=== PATIENT | male | born 1975 | race Two or more races ===

== ENCOUNTER 2021-06-03 15:43 | Inpatient (IN) | payer MEDICAID ==
[~2021-06-03] VITALS: Ht 185.4 cm; Wt 121.7 kg
[2021-06-03] MEDS ORDERED: SODIUM CHLORIDE 0.9% 1,000 ML IV ONE ×2 (16:15)
[2021-06-03] MEDS ORDERED: CLINDAMYCIN 600MG IV 50 ML IV ONE (16:15)
[2021-06-03] MEDS ORDERED: cefTRIAXone 1GM/50ML D5W 50 ML IV ONE (16:15)
[2021-06-03 16:54] LABS: Hemoglobin 11.4 g/dL (13.5-17.5); Mean Corpuscular Hgb Conc. 32.8 g/dL (32.0-36.0); White Blood Cell 6.4 10^3/uL (4.4-10.8)
[2021-06-03 16:56] LABS: Hematocrit 34.7 % (41.0-53.0); Mean Corpuscular Hemoglobin 26.6 pg (28.0-32.0); Mean Corpuscular Volume 81.3 fL (80.0-100.0); Red Blood Cells 4.26 10^6/uL (4.5-5.90); Red Cell Distribution Width 14.8 % (11.8-14.3)
[2021-06-03 17:04] LABS: Band Neutrophils % (manual) 0; Basophils % (manual) 0 (0.0-2.0); Blast Cells 0; Myelocytes % 0; Promyelocytes % 0; Reactive Lymphocytes 0
[2021-06-03 17:08] LABS: INR 1.25 (0.9-1.15); Partial Thromboplastin Time 37.3 sec (23.6-33.0)
[2021-06-03 17:15] LABS: Alanine Aminotransferase 18 U/L (16-61); Albumin 3.3 g/dL (3.4-5.0); Anion Gap 9 (5-15); Aspartate Aminotransferase 9 U/L (15-37); BUN/Creatinine Ratio 7.7; Blood Urea Nitrogen 8 mg/dL (7-18); Calcium 9.1 mg/dL (8.5-10.1); Carbon Dioxide 24 mmol/L (21-32); Chloride 106 mmol/L (98-107); GFR African American 100 mL/min; GFR Non-African American 82 mL/min; Glucose 98 mg/dL (74-106); Potassium 3.4 mmol/L (3.5-5.1); Sodium 139 mmol/L (136-145)
[2021-06-03 17:19] LABS: Alkaline Phosphatase 119 U/L (45-117); Bilirubin, Total 0.4 mg/dL (0.2-1.0); Total Protein 8.2 g/dL (6.4-8.2)
[2021-06-03 17:39] LABS: Eosinophils % (manual) 2 (0-7); Lymphocytes % (manual) 43 (10.0-50.0); Metamyelocytes % 1; Monocytes % (manual) 2 (0-12)
[2021-06-03] MEDS ORDERED: GABAPENTIN 300 MG CAP PO ONE (18:30)
[2021-06-03] MEDS ORDERED: VANCOMYCIN 1GM/250ML 250 ML IV ONE (19:30)
[2021-06-03] MEDS: PIPERACILLIN-TAZO 4.5GM 100 ML IV SCH (23:10)
[2021-06-03] MEDS ORDERED: POTASSIUM CHL 20 Meq TABLET PO ONE (23:30)
[2021-06-03] MEDS ORDERED: DOCUSATE SOD 100 MG CAP PO PRN (23:30)
[2021-06-03] MEDS ORDERED: NITROGLYCERIN 0.4 MG SL TAB SL PRN (23:30)
[2021-06-03] MEDS ORDERED: VANCOMYCIN PER PHARMACY 0 MG IV SCH (23:30)
[2021-06-03] MEDS ORDERED: MORPHINE SULFATE INJECTION 2 MG/ML SYRG IV PRN (23:30)
[2021-06-04] VITALS (7 sets, daily range): BP systolic 147–168; BP diastolic 88–98
[2021-06-04 01:10] LABS: Urine Bacteria FEW /hpf (None Seen); Urine Blood Negative /uL (Negative); Urine Mucus FEW (None Seen); Urine Specific Gravity 1.019 (1.001-1.035); Urine WBC 4 /hpf (0 - 3)
[2021-06-04] MEDS: MORPHINE SULFATE 4 MG/ML SYR/VIAL IV PRN ×3 (01:30→17:45)
[2021-06-04] MEDS ORDERED: VANCOMYCIN 1GM/250ML 250 ML IV ONE (04:00)
[2021-06-04] MEDS ORDERED: HYDR-5052 PO (04:26)
[2021-06-04] MEDS ORDERED: LISI-716 PO (04:26)
[2021-06-04] MEDS ORDERED: AMLO-489 PO (04:26)
[2021-06-04] MEDS ORDERED: IBUP600T28 PO (04:26)
[2021-06-04] MEDS ORDERED: GABA-339 PO (04:26)
[2021-06-04] MEDS ORDERED: CHOL20007 PO (04:26)
[2021-06-04] MEDS ORDERED: RIV15T PO (04:26)
[2021-06-04 05:43] LABS: Basophils # (auto) 0 10 ^3/uL (0-0.2); Basophils % (auto) 0.5 % (0.0-2.0); Eosinophils # (auto) 0.2 10 ^3/uL (0-0.8); Hemoglobin 9.4 g/dL (13.5-17.5); Lymphocytes # (auto) 1.9 10 ^3/uL (0.4-5.4); Monocytes # (auto) 0.4 10 ^3/uL (0-1.3); Nucleated Red Blood Cells % 0.1 %
[2021-06-04 05:50] LABS: Eosinophils % (auto) 3.4 % (0.0-7.0); Hematocrit 28.7 % (41.0-53.0); Lymphocytes % (auto) 36.7 % (10.0-50.0); Mean Corpuscular Hemoglobin 26.6 pg (28.0-32.0); Mean Corpuscular Hgb Conc. 32.6 g/dL (32.0-36.0); Mean Corpuscular Volume 81.6 fL (80.0-100.0); Monocytes % (auto) 8.7 % (0.0-12.0); Neutrophils # (auto) 2.6 10 ^3/uL (1.6-8.6); Neutrophils % (auto) 50.7 % (37.0-80.0); Red Blood Cells 3.52 10^6/uL (4.5-5.90); Red Cell Distribution Width 15.1 % (11.8-14.3); White Blood Cell 5.1 10^3/uL (4.4-10.8)
[2021-06-04] MEDS: PIPERACILLIN-TAZO 4.5GM 100 ML IV SCH ×3 (06:00→15:29)
[2021-06-04 06:17] LABS: Albumin 2.5 g/dL (3.4-5.0); Calcium 8.7 mg/dL (8.5-10.1); Potassium 3.2 mmol/L (3.5-5.1)
[2021-06-04 06:19] LABS: BUN/Creatinine Ratio 6.3
[2021-06-04 06:29] LABS: Bilirubin, Total 0.3 mg/dL (0.2-1.0); Total Protein 6.6 g/dL (6.4-8.2)
[2021-06-04] MEDS: SODIUM CHLOR 0.9% PF (SALINE LOCK) 10ML VIAL/SYR IV SCH ×3 (07:12→22:07)
[2021-06-04] MEDS: VANCOMYCIN 1GM/250ML 250 ML IV SCH ×2 (10:03→18:38)
[2021-06-04] MEDS: FAMOTIDINE (10MG/ML) 2ML VL IV SCH ×2 (10:04→22:07)
[2021-06-04] MEDS: ENOXAPARIN SOD 40 MG/0.4 ML SYRINGE SC SCH (10:05)
[2021-06-04] MEDS: MULTIPLE VITAMIN TAB PO SCH (10:06)
[2021-06-04] MEDS: ASCORBIC ACID 500 MG TAB PO SCH ×2 (10:06→22:07)
[2021-06-04] MEDS: amLODIPine BESYLATE 5 MG TAB PO SCH (10:06)
[2021-06-04] MEDS: ZINC SULFATE 220mg CAP or TAB PO SCH (10:06)
[2021-06-04] MEDS: HYDROcodone-ACET 5/325MG TAB PO PRN (10:17)
[2021-06-04] MEDS: hydrALAZINE HCL 20 MG/ML VL IV PRN ×2 (11:33→17:44)
[2021-06-04] MEDS: AZITHROMYCIN 500MG/ 250ML 250 ML IV SCH (13:29)
[2021-06-04] MEDS ORDERED: POTASSIUM CHL 20 Meq TABLET PO ONE (14:45)
[2021-06-04 15:19] LABS: INR 1.11 (0.9-1.15); Partial Thromboplastin Time 33.8 sec (23.6-33.0)
[2021-06-04] MEDS ORDERED: GABAPENTIN 300 MG CAP PO ONE (21:00)
[2021-06-05] VITALS (12 sets, daily range): BP systolic 98–161; BP diastolic 62–102
[2021-06-05] MEDS: VANCOMYCIN 1GM/250ML 250 ML IV SCH ×3 (03:00→22:34)
[2021-06-05] MEDS: SODIUM CHLOR 0.9% PF (SALINE LOCK) 10ML VIAL/SYR IV SCH ×3 (06:00→22:35)
[2021-06-05] MEDS: PIPERACILLIN-TAZO 4.5GM 100 ML IV SCH ×3 (06:00→23:34)
[2021-06-05] MEDS ORDERED: TETRACAINE 1% INJ 2 ML VIAL IJ ONE (07:09)
[2021-06-05] MEDS ORDERED: MIDAZOLAM HCL 2MG/2ML 2ml VIAL (1mg/ml) ONE ×2 (07:15→07:51)
[2021-06-05] MEDS ORDERED: fentaNYL CITRATE 100 MCG/2 ML VL ONE (07:15)
[2021-06-05] MEDS ORDERED: KETAMINE HCL 10 ML ONE (07:15)
[2021-06-05] MEDS ORDERED: MORPHINE SULF PF 2 MG/2 ML SYRG ONE (07:15)
[2021-06-05] MEDS ORDERED: PROPOFOL 10 MG/ML 20 ML IV ONE ×2 (07:16→09:19)
[2021-06-05] MEDS ORDERED: PHENYLEPHRINE HCL 10 MG/ML VL ONE (07:16)
[2021-06-05] MEDS ORDERED: ePHEDrine SULFATE 50 MG/ML AMP ONE (07:16)
[2021-06-05] MEDS ORDERED: GLYCOPYRROLATE 0.2 MG/ML 1ML VIAL ONE (07:16)
[2021-06-05] MEDS ORDERED: ONDANSETRON HCL 4 MG/2 ML VIAL ONE (07:16)
[2021-06-05] MEDS ORDERED: POVIDONE IODINE 10 % TOPICAL OINT 30GM TOP ONE (08:28)
[2021-06-05] MEDS ORDERED: ONDANSETRON HCL 4 MG/2 ML VIAL IV PRN (09:45)
[2021-06-05] MEDS ORDERED: NALOXONE HCL 0.4 MG/ML VIAL IV PRN (09:45)
[2021-06-05] MEDS ORDERED: DexAMETHasone SOD PHOS 10MG/1ML VIAL INJ IV PRN (09:45)
[2021-06-05] MEDS ORDERED: diphenhdrAMINE HCL 50 MG/1 ML VL IV PRN (09:45)
[2021-06-05] MEDS: FAMOTIDINE (10MG/ML) 2ML VL IV SCH ×2 (10:00→22:36)
[2021-06-05] MEDS: ENOXAPARIN SOD 40 MG/0.4 ML SYRINGE SC SCH (10:00)
[2021-06-05] MEDS: MULTIPLE VITAMIN TAB PO SCH (10:00)
[2021-06-05] MEDS: ASCORBIC ACID 500 MG TAB PO SCH ×2 (10:00→22:35)
[2021-06-05] MEDS: ZINC SULFATE 220mg CAP or TAB PO SCH (10:00)
[2021-06-05] MEDS: AZITHROMYCIN 500MG/ 250ML 250 ML IV SCH (10:00)
[2021-06-05] MEDS: amLODIPine BESYLATE 5 MG TAB PO SCH (12:04)
[2021-06-05] MEDS: MORPHINE SULFATE 4 MG/ML SYR/VIAL IV PRN ×3 (12:06→22:36)
[2021-06-05] MEDS: ONDANSETRON HCL 4 MG/2 ML VIAL IV PRN ×2 (13:14→22:36)
[2021-06-05] MEDS: HYDROcodone-ACET 5/325MG TAB PO PRN (19:26)
[2021-06-05] MEDS: ACETAMINOPHEN 325 MG TAB PO PRN (22:36)
[2021-06-06] VITALS (11 sets, daily range): BP systolic 134–158; BP diastolic 86–102
[2021-06-06] MEDS: hydrALAZINE HCL 20 MG/ML VL IV PRN (00:40)
[2021-06-06] MEDS: SODIUM CHLOR 0.9% PF (SALINE LOCK) 10ML VIAL/SYR IV SCH ×3 (06:36→22:13)
[2021-06-06] MEDS: VANCOMYCIN 1GM/250ML 250 ML IV SCH (06:36)
[2021-06-06] MEDS: ONDANSETRON HCL 4 MG/2 ML VIAL IV PRN (06:37)
[2021-06-06] MEDS: ACETAMINOPHEN 325 MG TAB PO PRN (06:37)
[2021-06-06] MEDS: PIPERACILLIN-TAZO 4.5GM 100 ML IV SCH (07:32)
[2021-06-06] MEDS: HYDROcodone-ACET 5/325MG TAB PO PRN (10:10)
[2021-06-06] MEDS: ASCORBIC ACID 500 MG TAB PO SCH ×2 (10:10→22:12)
[2021-06-06] MEDS: MULTIPLE VITAMIN TAB PO SCH (10:11)
[2021-06-06] MEDS: FAMOTIDINE (10MG/ML) 2ML VL IV SCH ×2 (10:11→22:13)
[2021-06-06] MEDS: amLODIPine BESYLATE 5 MG TAB PO SCH (10:11)
[2021-06-06] MEDS: ENOXAPARIN SOD 40 MG/0.4 ML SYRINGE SC SCH (10:11)
[2021-06-06] MEDS: ZINC SULFATE 220mg CAP or TAB PO SCH (10:11)
[2021-06-06] MEDS: AZITHROMYCIN 500MG/ 250ML 250 ML IV SCH (10:12)
[2021-06-06] MEDS: HYDROmorphone HCL 2 MG/ML VL IV PRN ×3 (13:52→22:14)
[2021-06-07] MEDS: HYDROmorphone HCL 2 MG/ML VL IV PRN ×2 (03:44→15:53)
[2021-06-07 05:00] VITALS: BP 136/85
[2021-06-07] MEDS: SODIUM CHLOR 0.9% PF (SALINE LOCK) 10ML VIAL/SYR IV SCH ×2 (05:44→14:25)
[2021-06-07 06:21] LABS: Basophils # (auto) 0.1 10 ^3/uL (0-0.2); Eosinophils # (auto) 0.1 10 ^3/uL (0-0.8); Mean Corpuscular Hemoglobin 26.9 pg (28.0-32.0); Monocytes # (auto) 0.6 10 ^3/uL (0-1.3)
[2021-06-07 06:23] LABS: Basophils % (auto) 0.8 % (0.0-2.0); Eosinophils % (auto) 1.8 % (0.0-7.0); Hemoglobin 8.9 g/dL (13.5-17.5); Lymphocytes % (auto) 27.6 % (10.0-50.0); Mean Corpuscular Volume 81.4 fL (80.0-100.0); Monocytes % (auto) 8.6 % (0.0-12.0); Neutrophils # (auto) 4.4 10 ^3/uL (1.6-8.6); Neutrophils % (auto) 61.2 % (37.0-80.0); Red Blood Cells 3.31 10^6/uL (4.5-5.90); Red Cell Distribution Width 15.3 % (11.8-14.3); White Blood Cell 7.2 10^3/uL (4.4-10.8)
[2021-06-07 06:52] LABS: Potassium 3.4 mmol/L (3.5-5.1)
[2021-06-07 06:56] LABS: Albumin 2.5 g/dL (3.4-5.0); BUN/Creatinine Ratio 3.5; Calcium 8.8 mg/dL (8.5-10.1)
[2021-06-07 06:58] LABS: Bilirubin, Total 0.4 mg/dL (0.2-1.0); Total Protein 6.8 g/dL (6.4-8.2)
[2021-06-07 08:00] VITALS: BP 147/92
[2021-06-07] MEDS: ACETAMINOPHEN 325 MG TAB PO PRN (09:27)
[2021-06-07] MEDS: MULTIPLE VITAMIN TAB PO SCH (09:30)
[2021-06-07] MEDS: FAMOTIDINE (10MG/ML) 2ML VL IV SCH ×2 (09:30→21:36)
[2021-06-07] MEDS: ASCORBIC ACID 500 MG TAB PO SCH ×2 (09:30→21:36)
[2021-06-07] MEDS: ZINC SULFATE 220mg CAP or TAB PO SCH (09:30)
[2021-06-07] MEDS: amLODIPine BESYLATE 5 MG TAB PO SCH (09:33)
[2021-06-07] MEDS: ENOXAPARIN SOD 40 MG/0.4 ML SYRINGE SC SCH (09:34)
[2021-06-07] MEDS: ONDANSETRON HCL 4 MG/2 ML VIAL IV PRN ×2 (10:42→14:25)
[2021-06-07 13:00] VITALS: BP 134/86
[2021-06-07 17:00] VITALS: BP 143/85
[2021-06-07 22:00] VITALS: BP 133/90
[2021-06-08] MEDS: SODIUM CHLOR 0.9% PF (SALINE LOCK) 10ML VIAL/SYR IV SCH ×4 (02:27→22:45)
[2021-06-08] MEDS: HYDROmorphone HCL 2 MG/ML VL IV PRN ×4 (02:30→20:09)
[2021-06-08 05:00] VITALS: BP 121/85
[2021-06-08 09:00] VITALS: BP 135/87
[2021-06-08] MEDS: MULTIPLE VITAMIN TAB PO SCH (09:37)
[2021-06-08] MEDS: ASCORBIC ACID 500 MG TAB PO SCH ×2 (09:37→22:45)
[2021-06-08] MEDS: ZINC SULFATE 220mg CAP or TAB PO SCH (09:37)
[2021-06-08] MEDS: amLODIPine BESYLATE 5 MG TAB PO SCH (09:38)
[2021-06-08] MEDS: FAMOTIDINE (10MG/ML) 2ML VL IV SCH ×2 (09:38→22:44)
[2021-06-08] MEDS: ENOXAPARIN SOD 40 MG/0.4 ML SYRINGE SC SCH (09:39)
[2021-06-08 13:00] VITALS: BP 145/90
[2021-06-08 17:00] VITALS: BP 136/87
[2021-06-08 22:22] VITALS: BP 149/96
[2021-06-09] MEDS: HYDROmorphone HCL 2 MG/ML VL IV PRN ×3 (01:35→13:19)
[2021-06-09] MEDS: SODIUM CHLOR 0.9% PF (SALINE LOCK) 10ML VIAL/SYR IV SCH ×2 (05:28→14:00)
[2021-06-09 05:30] VITALS: BP 129/88
[2021-06-09 09:00] VITALS: BP 151/93
[2021-06-09] MEDS: ZINC SULFATE 220mg CAP or TAB PO SCH (09:01)
[2021-06-09] MEDS: FAMOTIDINE (10MG/ML) 2ML VL IV SCH (09:01)
[2021-06-09] MEDS: MULTIPLE VITAMIN TAB PO SCH (09:01)
[2021-06-09] MEDS: ENOXAPARIN SOD 40 MG/0.4 ML SYRINGE SC SCH (09:02)
[2021-06-09] MEDS: ASCORBIC ACID 500 MG TAB PO SCH (09:02)
[2021-06-09] MEDS: amLODIPine BESYLATE 5 MG TAB PO SCH (09:02)
[2021-06-09 13:00] VITALS: BP 142/85
[2021-06-09] MEDS ORDERED: levoFLOXacin 500MG 100 ML IV ONE (13:15)
[2021-06-10] MEDS ORDERED: levoFLOXacin 500MG 100 ML IV SCH (10:00)
== END 2021-06-09 17:50 | disposition home or self-care (01) | DRG 305 ==
LOC: ER 15:43 → OVERFLOW 23:17 → WEST WING 23:55 → TELE-WESTW 06-05 10:52
PROVIDERS: ADMIT Nurse Practitioner Family; ATTEND Family Medicine
PROC: 0Y6J0Z1 Detachment at Left Lower Leg, High, Open Approach (ICD-10-PCS; principal; 2021-06-05 07:27)
DX: M86.172 Other acute osteomyelitis, left ankle and foot (principal); M72.6 Necrotizing fasciitis; A48.0 Gas gangrene; J18.9 Pneumonia, unspecified organism; S92.902A Unspecified fracture of left foot, initial encounter for closed fracture; E66.01 Morbid (severe) obesity due to excess calories; I10 Essential (primary) hypertension; B96.20 Unspecified Escherichia coli [E. coli] as the cause of diseases classified elsewhere; Z20.822 Contact with and (suspected) exposure to COVID-19; Z83.3 Family history of diabetes mellitus; Z91.19 Patient's noncompliance with other medical treatment and regimen; Y93.89 Activity, other specified; Z68.35 Body mass index [BMI] 35.0-35.9, adult; Y92.89 Other specified places as the place of occurrence of the external cause; Y99.8 Other external cause status
CPT/HCPCS: 36415; 71045; 73700; 80053; 80202; 81001; 83605; 84484; 85007; 85025; 85027; 85610; 85730; 86850; 86900; 86901; 87040; 87077; 87186; 87205; 87426; 96365; 96366; 96367; 97110; 97163; 97530; G0378; J0696; J2250; J2405; J2543; J2704; J3490